=== PATIENT | female | born 1985 | race Caucasian/White ===

== ENCOUNTER 2017-07-28 00:14 | Emergency (ER) | payer OTHER ==
[~2017-07-28] VITALS: Ht 170.2 cm; Wt 65.0 kg
[2017-07-28 00:25] VITALS: BP 142/82; PULSE 80; RESP 18; TEMP 98.2; O2SAT 100
[2017-07-28] MEDS ORDERED: OCEL3TAB PO (00:43)
--- NOTE | 2017-07-28 01:48 | PD ---
HPI Chief Complaint: Psychiatric Symptoms Time Seen by Provider: 01:18 Travel History International Travel<30 days: No Contact w/Intl Traveler<30days: No Traveled to known affect area: No History of Present Illness HPI 31-year-old white female presents to emergency department under Maria act by PD. The patient states that she had gone out to dinner this evening and had alcohol. She had text a male friend but had not received a response. She states that she then text a second time stating that she was contemplating suicide using a hand gun. The person notified police and the patient was Maria acted. PD noted that handgun was unloaded. The patient here denies any true suicidal ideation. No homicidal ideation. The patient states that she had done this as an intention getting action. She denies any medical complaints. 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 PFSH Past Medical History Anxiety: Yes Depression: Yes Tetanus Vaccination: < 5 Years ?: Unknown LMP: 07/24/17 : 0 Para: 0 Miscarriage: 0 : 0 Past Surgical History Surgical History: No Previous Surgery Oral Surgery: Yes (wisdom teeth removed) Social History Alcohol Use: Yes (2-3x/wk beer/wine; couple elgin & sake 07/27/17) Tobacco Use: No Substance Use: No Allergies-Medications (Allergen,Severity, Reaction): Coded Allergies: No Known Allergies (Unverified , 07/28/17) Reported Meds & Prescriptions Reported Meds & Active Scripts Active Reported Sertraline (Sertraline HCl) 100 Mg Tab 100 Mg PO DAILY Ocella (Drospirenone-Ethinyl Estradiol) 3-0.03 Mg Tab 1 Tab PO DAILY Review of Systems General / Constitutional: No: Fever Eyes: No: Visual changes HENT: No: Headaches Cardiovascular: No: Chest Pain or Discomfort Respiratory: No: Shortness of Breath Gastrointestinal: No: Abdominal Pain Genitourinary: No: Dysuria Musculoskeletal: No: Pain Skin: No Rash Neurologic: No: Weakness, Coordination Problem Psychiatric: Positive: Mood Disorder, No: Anxiety, Depression, Suicidal Ideations, Disorder of Thought, Substance Abuse, Homicidal Ideation Endocrine: No: Polydipsia Hematologic/Lymphatic: No: Easy Bruising Physical Exam Narrative GENERAL: Well-nourished, well-developed patient. SKIN: Warm and dry. HEAD: Normocephalic and atraumatic. EYES: No scleral icterus. No injection or drainage. ENT: No nasal drainage noted. Mucous membranes pink. Airway patent. NECK: Supple, trachea midline. Moves head freely without obvious discomfort. CARDIOVASCULAR: Regular rate and rhythm without murmurs, gallops, or rubs. RESPIRATORY: Breath sounds equal bilaterally. No accessory muscle use. GASTROINTESTINAL: Abdomen soft, non-tender, nondistended. EXTREMITIES: No cyanosis or edema. BACK: Nontender without obvious deformity. No CVA tenderness. NEURO: Patient is alert and oriented. no sensorimotor deficits. Nonfocal. Normal speech. PSYCH: No delusions. No auditory or visual hallucinations. Data Data Last Documented VS Vital Signs Date Time Temp Pulse Resp B/P (MAP) Pulse Ox O2 Delivery O2 Flow Rate FiO2 07/28/17 03:02 98.6 72 16 124/70 (88) 97 Room Air Orders Orders Complete Blood Count With Diff (07/28/17 01:54) Comprehensive Metabolic Panel (07/28/17 01:54) Ed Urine Pregnancytest Poc (07/28/17 01:54) Psych Screen (07/28/17 01:54) Drug Screen, Random Urine (07/28/17 01:54) Alcohol (Ethanol) (07/28/17 01:54) Labs Laboratory Tests Test 07/28/17 00:43 White Blood Count 6.0 TH/MM3 Red Blood Count 4.03 MIL/MM3 Hemoglobin 12.9 GM/DL Hematocrit 38.5 % Mean Corpuscular Volume 95.4 FL Mean Corpuscular Hemoglobin 31.9 PG Mean Corpuscular Hemoglobin Concent 33.4 % Red Cell Distribution Width 14.3 % Platelet Count 235 TH/MM3 Mean Platelet Volume 9.0 FL Neutrophils (%) (Auto) 46.4 % Lymphocytes (%) (Auto) 44.0 % Monocytes (%) (Auto) 6.2 % Eosinophils (%) (Auto) 1.6 % Basophils (%) (Auto) 1.8 % Neutrophils # (Auto) 2.8 TH/MM3 Lymphocytes # (Auto) 2.6 TH/MM3 Monocytes # (Auto) 0.4 TH/MM3 Eosinophils # (Auto) 0.1 TH/MM3 Basophils # (Auto) 0.1 TH/MM3 CBC Comment DIFF FINAL Differential Comment Blood Urea Nitrogen 14 MG/DL Creatinine 0.76 MG/DL Random Glucose 101 MG/DL Total Protein 7.3 GM/DL Albumin 3.8 GM/DL Calcium Level 8.9 MG/DL Alkaline Phosphatase 43 U/L Aspartate Amino Transf (AST/SGOT) 19 U/L Alanine Aminotransferase (ALT/SGPT) 24 U/L Total Bilirubin 0.1 MG/DL Sodium Level 142 MEQ/L Potassium Level 3.4 MEQ/L Chloride Level 108 MEQ/L Carbon Dioxide Level 25.5 MEQ/L Anion Gap 9 MEQ/L Estimat Glomerular Filtration Rate 88 ML/MIN Urine Opiates Screen NEG Urine Barbiturates Screen NEG Urine Amphetamines Screen NEG Urine Benzodiazepines Screen NEG Urine Cocaine Screen NEG Urine Cannabinoids Screen NEG Ethyl Alcohol Level 86 MG/DL MDM Medical Decision Making Medical Screen Exam Complete: Yes Emergency Medical Condition: Yes Medical Record Reviewed: Yes Interpretation(s) Laboratory Tests Test 07/28/17 00:43 White Blood Count 6.0 TH/MM3 Red Blood Count 4.03 MIL/MM3 Hemoglobin 12.9 GM/DL Hematocrit 38.5 % Mean Corpuscular Volume 95.4 FL Mean Corpuscular Hemoglobin 31.9 PG Mean Corpuscular Hemoglobin Concent 33.4 % Red Cell Distribution Width 14.3 % Platelet Count 235 TH/MM3 Mean Platelet Volume 9.0 FL Neutrophils (%) (Auto) 46.4 % Lymphocytes (%) (Auto) 44.0 % Monocytes (%) (Auto) 6.2 % Eosinophils (%) (Auto) 1.6 % Basophils (%) (Auto) 1.8 % Neutrophils # (Auto) 2.8 TH/MM3 Lymphocytes # (Auto) 2.6 TH/MM3 Monocytes # (Auto) 0.4 TH/MM3 Eosinophils # (Auto) 0.1 TH/MM3 Basophils # (Auto) 0.1 TH/MM3 CBC Comment DIFF FINAL Differential Comment Blood Urea Nitrogen 14 MG/DL Creatinine 0.76 MG/DL Random Glucose 101 MG/DL Total Protein 7.3 GM/DL Albumin 3.8 GM/DL Calcium Level 8.9 MG/DL Alkaline Phosphatase 43 U/L Aspartate Amino Transf (AST/SGOT) 19 U/L Alanine Aminotransferase (ALT/SGPT) 24 U/L Total Bilirubin 0.1 MG/DL Sodium Level 142 MEQ/L Potassium Level 3.4 MEQ/L Chloride Level 108 MEQ/L Carbon Dioxide Level 25.5 MEQ/L Anion Gap 9 MEQ/L Estimat Glomerular Filtration Rate 88 ML/MIN Urine Opiates Screen NEG Urine Barbiturates Screen NEG Urine Amphetamines Screen NEG Urine Benzodiazepines Screen NEG Urine Cocaine Screen NEG Urine Cannabinoids Screen NEG Ethyl Alcohol Level 86 MG/DL Differential Diagnosis MDM: High Differential diagnoses: Schizophrenia, schizoaffective disorder, bipolar, anxiety, depression, adjustment reaction, mood disorder NOS, ODD, depressive disorder NOS, dementia, dementia with agitation, psychosis NOS, substance induced mood disorder, DMDD, Asperger syndrome, infection,electrolyte abnormality, malingering. Narrative Course Mental health screening discussed with the patient. Psychiatric screen ordered. The patient's been medically cleared. This is medical clearance for psychiatric admission Diagnosis Primary Impression: Medical clearance for psychiatric admission Condition: Stable Stevan Galindo Jul 28, 2017 01:48
[2017-07-28 02:34] LABS: AUTOMATED NEUTROPHIL # 2.8 TH/MM3 (1.8-7.7); BASOPHIL # 0.1 TH/MM3 (0-0.2); BASOPHIL % 1.8 % (0.0-2.0); EOSINOPHIL # 0.1 TH/MM3 (0-0.4); EOSINOPHIL % 1.6 % (0.0-4.0); HEMATOCRIT 38.5 % (35.0-46.0); HEMO FLAGS DIFF FINAL; LYMPHOCYTE # 2.6 TH/MM3 (1.0-4.8); MEAN CELL VOLUME 95.4 FL (80.0-100.0); MEAN CORPUSCULAR HEMOGLOBIN 31.9 PG (27.0-34.0); MEAN CORPUSCULAR HGB CONC 33.4 % (32.0-36.0); MONO % 6.2 % (0.0-8.0); NEUT % 46.4 % (16.0-70.0); PLATELET COUNT 235 TH/MM3 (150-450); RED BLOOD COUNT 4.03 MIL/MM3 (4.00-5.30); RED CELL DISTRIBUTION WIDTH 14.3 % (11.6-17.2)
[2017-07-28] MEDS ORDERED: SERT-129 PO (02:46)
[2017-07-28 02:58] LABS: ALT (GPT) 24 U/L (10-53); ANION GAP 9 MEQ/L (5-15); AST (GOT) 19 U/L (15-37); BICARBONATE 25.5 MEQ/L (21.0-32.0); BLOOD UREA NITROGEN 14 MG/DL (7-18); CHLORIDE 108 MEQ/L (98-107); GLOMERULAR FILTRATION RATE 88 ML/MIN (>89); POTASSIUM 3.4 MEQ/L (3.5-5.1); SODIUM (NA) 142 MEQ/L (136-145)
[2017-07-28 02:59] LABS: ALCOHOL 86 MG/DL (0-5)
[2017-07-28 03:00] LABS: ALKALINE PHOSPHATASE 43 U/L (45-117); TOTAL BILIRUBIN ADULT 0.1 MG/DL (0.2-1.0)
[2017-07-28 03:02] VITALS: BP 124/70; PULSE 72; RESP 16; TEMP 98.6; O2SAT 97
[2017-07-28 06:00] VITALS: BP 122/58; PULSE 86; RESP 16; TEMP 98.3; O2SAT 98
--- NOTE | 2017-07-28 11:00 | PD ---
History of Present Illness Chief Complaint: Psychiatric Symptoms Time Seen by Provider: 11:00 Travel History International Travel<30 Days: No Contact w/Intl Traveler<30days: No Known affected area: No Legal Status Legal Status: Maria Act Maria Act Signed By: Rosa Perales History of Present Illness: 31-year-old female brought in under a Maria act for making suicidal threats. Patient is no longer intoxicated and denies any suicidal or homicidal ideation, plan or intent. She presents with no psychotic symptoms and her cognition is intact. She is verbally francesca for safety and she is competent to do so. She feels her behavior last night was the result of not taking her control pills, leading to hormone fluctuation, coupled with alcohol. PFSH Past Medical History Anxiety: Yes Depression: Yes Tetanus Vaccination: < 5 Years ?: Unknown LMP: 07/24/17 : 0 Para: 0 Miscarriage: 0 : 0 Past Surgical History Surgical History: No Previous Surgery Oral Surgery: Yes (wisdom teeth removed) Psychiatric History Psychiatric History Hx Psychiatric Treatment: DX: DEPRESSION IN THE PAST PER PATIENT History of Inpatient Treatment: No Guns or firearms in home: Yes Social History Hx Alcohol Use: Yes (2-3x/wk beer/wine; couple [place] & sake 07/27/17) Hx Tobacco Use: No Hx Substance Use: No (PT DENIES) Hx of Substance Use Treatment: No Allergies-Medications (Allergen,Severity, Reaction): Coded Allergies: No Known Allergies (Unverified , 07/28/17) Reported Meds & Prescriptions Reported Meds & Active Scripts Active Reported Sertraline (Sertraline HCl) 100 Mg Tab 100 Mg PO DAILY Ocella (Drospirenone-Ethinyl Estradiol) 3-0.03 Mg Tab 1 Tab PO DAILY Review of Systems Except as stated in HPI: all other systems reviewed are Neg Mental Status Examination Appearance: Appropriate Consciousness: Alert Orientation: x4 Motor Activity: Normal gait Speech: Unremarkable Language: Adequate Fund of Knowledge: Adequate Attention and Concentration: Adequate Memory: Unremarkable Mood: Appropriate Affect: Appropriate Thought Process & Associations: Intact Thought Content: Appropriate Hallucination Type: None Delusion Type: None Suicidal Ideation: No Suicidal Plan: No Suicidal Intention: No Homicidal Ideation: No Homicidal Plan: No Homicidal Intention: No Insight: Adequate Judgment: Adequate MDM Medical Decision Making Medical Record Reviewed: Yes Assessment/Plan Patient interviewed at bedside. Medical record reviewed. Case discussed with nurse Avni. Patient is verbally francesca for safety and she is competent to do so. She is embarrassed regarding her behavior last night but does not meet criteria for Maria act or involuntary psychiatric hospitalization. Orders Orders Complete Blood Count With Diff (07/28/17 01:54) Comprehensive Metabolic Panel (07/28/17 01:54) Ed Urine Pregnancytest Poc (07/28/17 01:54) Psych Screen (07/28/17 01:54) Drug Screen, Random Urine (07/28/17 01:54) Alcohol (Ethanol) (07/28/17 01:54) Diet Regular Basic (07/28/17 Breakfast) Results Vital Signs Date Time Temp Pulse Resp B/P (MAP) Pulse Ox O2 Delivery O2 Flow Rate FiO2 07/28/17 10:16 Room Air 07/28/17 06:00 98.3 86 16 122/58 (79) 98 Room Air 07/28/17 03:02 98.6 72 16 124/70 (88) 97 Room Air 07/28/17 00:25 98.2 80 18 142/82 (102) 100 Laboratory Tests Test 07/28/17 00:43 White Blood Count 6.0 Red Blood Count 4.03 Hemoglobin 12.9 Hematocrit 38.5 Mean Corpuscular Volume 95.4 Mean Corpuscular Hemoglobin 31.9 Mean Corpuscular Hemoglobin Concent 33.4 Red Cell Distribution Width 14.3 Platelet Count 235 Mean Platelet Volume 9.0 Neutrophils (%) (Auto) 46.4 Lymphocytes (%) (Auto) 44.0 Monocytes (%) (Auto) 6.2 Eosinophils (%) (Auto) 1.6 Basophils (%) (Auto) 1.8 Neutrophils # (Auto) 2.8 Lymphocytes # (Auto) 2.6 Monocytes # (Auto) 0.4 Eosinophils # (Auto) 0.1 Basophils # (Auto) 0.1 CBC Comment DIFF FINAL Differential Comment Blood Urea Nitrogen 14 Creatinine 0.76 Random Glucose 101 Total Protein 7.3 Albumin 3.8 Calcium Level 8.9 Alkaline Phosphatase 43 Aspartate Amino Transf (AST/SGOT) 19 Alanine Aminotransferase (ALT/SGPT) 24 Total Bilirubin 0.1 Sodium Level 142 Potassium Level 3.4 Chloride Level 108 Carbon Dioxide Level 25.5 Anion Gap 9 Estimat Glomerular Filtration Rate 88 Urine Opiates Screen NEG Urine Barbiturates Screen NEG Urine Amphetamines Screen NEG Urine Benzodiazepines Screen NEG Urine Cocaine Screen NEG Urine Cannabinoids Screen NEG Ethyl Alcohol Level 86 Diagnosis Primary Impression: Alcohol abuse Condition: Stable Benny Santacruz MD Jul 28, 2017 11:00
--- NOTE | 2017-07-28 11:44 | PD ---
Physical Exam Date Seen by Provider: Jul 28, 2017 Time Seen by Provider: 11:43 Narrative Patient was brought in as a Maria act last night for being intoxicated and make threatening comments to her boyfriend. The police by Maria acting her had confiscated the firearm. Patient has been seen by Dr. Santacruz from psych who has lifted her Maria act. Patient notes said the following: "Patient interviewed at bedside. Medical record reviewed. Case discussed with nurse Avni. Patient is verbally francesca for safety and she is competent to do so. She is embarrassed regarding her behavior last night but does not meet criteria for Maria act or involuntary psychiatric hospitalization." I'm comfortable discharging her at this point. Data Data Last Documented VS Orders Orders Complete Blood Count With Diff (07/28/17 01:54) Comprehensive Metabolic Panel (07/28/17 01:54) Ed Urine Pregnancytest Poc (07/28/17 01:54) Psych Screen (07/28/17 01:54) Drug Screen, Random Urine (07/28/17 01:54) Alcohol (Ethanol) (07/28/17 01:54) Diet Regular Basic (07/28/17 Breakfast) Ed Discharge Order (07/28/17 11:42) Labs Laboratory Tests Test 07/28/17 00:43 White Blood Count 6.0 TH/MM3 Red Blood Count 4.03 MIL/MM3 Hemoglobin 12.9 GM/DL Hematocrit 38.5 % Mean Corpuscular Volume 95.4 FL Mean Corpuscular Hemoglobin 31.9 PG Mean Corpuscular Hemoglobin Concent 33.4 % Red Cell Distribution Width 14.3 % Platelet Count 235 TH/MM3 Mean Platelet Volume 9.0 FL Neutrophils (%) (Auto) 46.4 % Lymphocytes (%) (Auto) 44.0 % Monocytes (%) (Auto) 6.2 % Eosinophils (%) (Auto) 1.6 % Basophils (%) (Auto) 1.8 % Neutrophils # (Auto) 2.8 TH/MM3 Lymphocytes # (Auto) 2.6 TH/MM3 Monocytes # (Auto) 0.4 TH/MM3 Eosinophils # (Auto) 0.1 TH/MM3 Basophils # (Auto) 0.1 TH/MM3 CBC Comment DIFF FINAL Differential Comment Blood Urea Nitrogen 14 MG/DL Creatinine 0.76 MG/DL Random Glucose 101 MG/DL Total Protein 7.3 GM/DL Albumin 3.8 GM/DL Calcium Level 8.9 MG/DL Alkaline Phosphatase 43 U/L Aspartate Amino Transf (AST/SGOT) 19 U/L Alanine Aminotransferase (ALT/SGPT) 24 U/L Total Bilirubin 0.1 MG/DL Sodium Level 142 MEQ/L Potassium Level 3.4 MEQ/L Chloride Level 108 MEQ/L Carbon Dioxide Level 25.5 MEQ/L Anion Gap 9 MEQ/L Estimat Glomerular Filtration Rate 88 ML/MIN Urine Opiates Screen NEG Urine Barbiturates Screen NEG Urine Amphetamines Screen NEG Urine Benzodiazepines Screen NEG Urine Cocaine Screen NEG Urine Cannabinoids Screen NEG Ethyl Alcohol Level 86 MG/DL MDM Supervised Visit with [facility]: No Diagnosis Primary Impression: Alcohol abuse Referrals: [facility] (Out patient) call for appointment Medication Management Patient Instructions: General Instructions, Mood Disorders (ED) Departure Forms: Tests/Procedures Disposition: 01 DISCHARGE HOME Condition: Stable Prasanth White MD Jul 28, 2017 11:44
== END 2017-07-28 13:34 | disposition home or self-care (01) ==
LOC: NEPD 00:14 → NEPJ 13:34
DX: Z02.89 Encounter for other administrative examinations (principal); F10.10 Alcohol abuse, uncomplicated; Z79.899 Other long term (current) drug therapy; Z86.59 Personal history of other mental and behavioral disorders
CPT/HCPCS: 80053; 80307; 84703; 85025; 99285